=== PATIENT | male | born 1990 | race Caucasian/White ===

== ENCOUNTER 2023-03-24 22:44 | Inpatient (IN) | payer OTHER ==
[2023-03-24] MEDS ORDERED: diazePAM CARPU-JECT 10 MG/2 ML DISP.SYRIN IVPUSH ONE (22:51)
[2023-03-24 22:58] VITALS: BMI 24.3
[2023-03-24] MEDS ORDERED: HYDROmorphone HCl 2 MG/ML VIAL ONE ×2 (23:18→23:36)
[2023-03-24] MEDS ORDERED: SODIUM CHLORIDE 0.9% 1000 ML INFUS.BAG IV ONE (23:18)
[2023-03-24] MEDS ORDERED: HYDROmorphone HCl 2 MG/ML VIAL IVPUSH ONE ×2 (23:30→23:36)
[2023-03-24 23:33] LABS: BASO % 0.4 % (0-2.0); EOS % 0.9 % (0-4.5); HEMATOCRIT 41.4 % (35.4-49); HEMOGLOBIN 14.2 GM/dL (11.7-16.9); LYMPH % 23.6 % (8-40); MCH 29.2 pg (25.7-33.7); MCHC 34.3 g/dl (32.0-35.9); MEAN CELL VOLUME 85.3 fl (80-96); MEAN PLT VOLUME 8.1 fl (7.5-11.1); MONO % 9.6 % (3.8-10.2); NEUT % 65.5 % (42.8-82.8); PLATELET COUNT 293 10^3/uL (134-434); RBC 4.85 M/mm3 (4.00-5.60); RDW 13.6 % (11.9-15.9); WHITE BLOOD COUNT 10.6 K/mm3 (4.0-10.0)
[2023-03-24 23:52] LABS: POTASSIUM 4.4 mmol/L (3.5-5.1)
[2023-03-24 23:54] LABS: CALCIUM 9.6 mg/dL (8.5-10.1)
[2023-03-24 23:55] LABS: ALBUMIN 3.8 g/dl (3.4-5.0); BLOOD UREA NITROGEN 12.3 mg/dL (7-18); MAGNESIUM 1.8 mg/dL (1.8-2.4)
[2023-03-24 23:58] LABS: CREATININE 0.8 mg/dL (0.55-1.3)
[2023-03-25] LABS: BILIRUBIN,TOTAL 0.3 mg/dL (0.2-1); TOT PROT 7.6 g/dl (6.4-8.2)
[2023-03-25] MEDS ORDERED: GABAPENTIN 100 MG CAPSULE PO ONE (01:17)
[2023-03-25] MEDS ORDERED: ACETAMINOPHEN 1000 MG/100 ML BAG IVPB PRN ×2 (01:19→01:21)
[2023-03-25] MEDS ORDERED: KETOROLAC TROMETHAMINE 15 MG/ML VIAL IVPUSH PRN (01:19)
[2023-03-25] MEDS ORDERED: morphine SULFATE 4 MG/ML VIAL IVPUSH PRN ×4 (01:20→02:17)
[2023-03-25] MEDS ORDERED: morphine SULFATE 4 MG/ML VIAL ONE (02:05)
[2023-03-25] MEDS ORDERED: MELATONIN 5 MG TABLETS PO ONE (02:53)
[2023-03-25] MEDS: ACETAMINOPHEN 1000 MG/100 ML BAG IVPB SCH ×3 (03:15→19:06)
[2023-03-25] MEDS ORDERED: traMADol HCL 50 MG TABLET PO PRN (03:45)
[2023-03-25] MEDS: LACTATED RINGERS SOLUTION 1,000 ML/1,000 ML INFUS.BAG IV SCH ×2 (03:58→15:53)
[2023-03-25] MEDS: GABAPENTIN 100 MG CAPSULE PO SCH ×3 (06:39→21:19)
[2023-03-25] MEDS: ENOXAPARIN NA (PORCINE) 40 MG/0.4 ML DISP.SYRIN SQ SCH (11:05)
[2023-03-25 11:09] LABS: COCAINE, UR NEGATIVE (NEGATIVE); METHADONE, UR NEGATIVE (NEGATIVE); PHENCYCLIDINE,URINE NEGATIVE (NEGATIVE); URINE BARBITURATES NEGATIVE (NEGATIVE)
[2023-03-25 11:10] LABS: OPIATES, URI POSITIVE (NEGATIVE); URINE AMPHETAMINES NEGATIVE (NEGATIVE); URINE BENZODIAZEPINES POSITIVE (NEGATIVE)
[2023-03-25 15:44] VITALS: RESP 18
[2023-03-25] MEDS: morphine SULFATE 4 MG/ML VIAL IVPUSH PRN ×2 (17:24→21:18)
[2023-03-25] MEDS ORDERED: SENNOSIDES 8.8 MG/5 ML SYRUP PO SCH (22:00)
[2023-03-25] MEDS ORDERED: MELATONIN 5 MG TABLETS PO PRN (22:58)
[2023-03-26] MEDS: morphine SULFATE 4 MG/ML VIAL IVPUSH PRN ×3 (01:31→12:15)
[2023-03-26] MEDS: LACTATED RINGERS SOLUTION 1,000 ML/1,000 ML INFUS.BAG IV SCH ×2 (03:58→04:18)
[2023-03-26] MEDS: GABAPENTIN 100 MG CAPSULE PO SCH ×2 (06:18→13:30)
[2023-03-26] MEDS: ENOXAPARIN NA (PORCINE) 40 MG/0.4 ML DISP.SYRIN SQ SCH ×2 (09:23→09:35)
[2023-03-26 15:35] VITALS: BP 113/70; PULSE 93; TEMP 98.6
== END 2023-03-26 17:39 | disposition home or self-care (01) | DRG 48 ==
LOC: JER 22:44 → JERBED 03-25 00:44 → OBSVTOIN 03-25 01:15 → J5S 03-25 02:28
PROVIDERS: ADMIT Internal Medicine
DX: M79.2 Neuralgia and neuritis, unspecified (principal); M62.838 Other muscle spasm; G82.20 Paraplegia, unspecified; M79.604 Pain in right leg; M79.605 Pain in left leg; R00.0 Tachycardia, unspecified
CPT/HCPCS: 36415; 80053; 80307; 82550; 82553; 83735; 85025; 99285-25; C9803-CS; G0378; U0003; U0005